=== PATIENT | female | born 1945 | race Hispanic/Latino ===

== ENCOUNTER → 2020-09-16 | Day surgery (SDC) | payer MEDICARE, OTHER ==
[2020-09-11 14:03] LABS: BASOPHILS % 0.5 % (0.0-1.0); EOSINOPHILS # (AUTO) 0.2 (0.0-0.4); EOSINOPHILS % 2.3 % (0.0-6.0); HEMOGLOBIN 11.5 g/dL (12.0-16.0); LYMPHOCYTES % 36.7 % (18.0-39.1); MEAN CORPUSCULAR HEMOGLOBIN 27.9 pg (28-32); MEAN CORPUSCULAR HGB CONC 32.9 g/dL (31-35); MONOCYTES # (AUTO) 0.8 (0.2-0.8); MONOCYTES % 9.5 % (4.4-11.3); NEUTROPHILS # (AUTO) 4.2 (2.1-6.9); NEUTROPHILS % 50.8 % (38.7-80.0); PLATELET COUNT 188 x10e3/uL (140-360); RED BLOOD COUNT 4.12 x10e6/uL (3.6-5.1); RED CELL DISTRIBUTION WIDTH 14.6 % (11.7-14.4)
[~2020-09-16] MED LIST: CALCIUM ACETAT667 M1 PO; FENTANYL CITRATE/PF 100MCG/2 ML INJ ONE; LEVOTHYROXINE50 MCG PO; LIDOCAINE HCL 2% LOCAL INJ 5 ML SDV VIAL INJ ONE; LOSARTAN POTAS100 MG PO; METFORMIN HCL500 MG PO; OMEPRAZOLE40 MG PO; PRAVACHOL40 MG PO; PROPOFOL IV EMULSION 10 MG/ML 20 ML VIAL ONE; VIT D PO
[2020-09-16 13:39] VITALS: BP 138/71
== END | disposition home or self-care (01) ==
LOC: OR 10:33
PROVIDERS: ATTEND Internal Medicine Gastroenterology
DX: K29.70 Gastritis, unspecified, without bleeding (principal); D12.3 Benign neoplasm of transverse colon; D12.4 Benign neoplasm of descending colon; K59.00 Constipation, unspecified; K20.90 Esophagitis, unspecified without bleeding; K21.9 Gastro-esophageal reflux disease without esophagitis; I10 Essential (primary) hypertension; E78.5 Hyperlipidemia, unspecified; E11.9 Type 2 diabetes mellitus without complications; Z01.810 Encounter for preprocedural cardiovascular examination; Z01.812 Encounter for preprocedural laboratory examination; Z11.59 Encounter for screening for other viral diseases; Z79.84 Long term (current) use of oral hypoglycemic drugs
CPT/HCPCS: 36415 ×2; 43239; 45380; 45384; 45385; 82948; 85025; 93005; J2001; J2704; J3010; U0002; 45378